=== PATIENT | male | born 1965 | race Caucasian/White ===

== ENCOUNTER 2020-08-11 20:03 | Inpatient (IN) | payer MEDICARE ==
[~2020-08-11] VITALS: Ht 185.4 cm; Wt 102.1 kg
[~2020-08-11 20:03] MED LIST: ALBUTEROL0.63 MG/3 INH; BUSPAR 10MG10 MG PO; COZAAR100 MG PO; ECOTRIN81 MG PO; GLUCOPHAGE500 MG PO; IMDUR ER TAB 6060 MG PO; LIPITOR TAB 2020 MG PO; NITROSTAT0.4 MG SL; PROTONIX40 M1 PO; TOPROL XL50 MG PO
[2020-08-11 20:38] LABS: HEMOGLOBIN 11.9 gm/dl (14.0-17.5); RED BLOOD COUNT 4.2 M/UL (4.20-5.50); WHITE BLOOD COUNT 4.9 K/UL (4.5-11.0)
[2020-08-11 20:54] LABS: BUN/CREATININE RATIO 17 (0-10)
[2020-08-12] MEDS ORDERED: PROTONIX40 MG PO (14:10)
[2020-08-12] MEDS ORDERED: FENOFIBRATE160 MG PO (14:13)
[2020-08-12] MEDS ORDERED: WELLBUTRIN XL150 MG PO (14:13)
[2020-08-12] MEDS ORDERED: FLONASE 0.05% N16 GM (14:14)
[2020-08-12] MEDS ORDERED: VENTOLIN HFA 66.7 GM INH (14:16)
[2020-08-12] MEDS ORDERED: ROPINIROLE HCL1 MG PO (14:17)
[2020-08-12] MEDS ORDERED: OZEMPIC0.25 MG/0. SQ (14:19)
[2020-08-12] MEDS ORDERED: ZOFRAN ODT 4 MG4 MG PO (14:20)
[2020-08-12] MEDS ORDERED: AMLODIPINE BESYL5 MG PO (15:38)
[2020-08-13 05:49] LABS: HEMOGLOBIN 12.4 gm/dl (14.0-17.5); RED BLOOD COUNT 4.41 M/UL (4.20-5.50); WHITE BLOOD COUNT 4.3 K/UL (4.5-11.0)
[2020-08-14 03:11] LABS: HEMOGLOBIN 12.2 gm/dl (14.0-17.5); RED BLOOD COUNT 4.29 M/UL (4.20-5.50)
--- NOTE | 2020-08-14 09:19 | NUR ---
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
--- NOTE | 2020-08-14 14:21 | NUR ---
REPORTED OFF TO HIREN BARILLAS ON PCU PT WENT TO [id number] FROM [employer] [employer] TAKED UP TO FLOOR PER ME
[2020-08-15 02:38] LABS: HEMOGLOBIN 11.6 gm/dl (14.0-17.5); RED BLOOD COUNT 4.11 M/UL (4.20-5.50); WHITE BLOOD COUNT 6.1 K/UL (4.5-11.0)
[2020-08-15] MEDS ORDERED: ATORVASTATIN CA20 MG PO (11:08)
[2020-08-15] MEDS ORDERED: CLOPIDOGREL75 MG PO (11:08)
== END 2020-08-15 12:32 | disposition home or self-care (01) | DRG 247 ==
LOC: ER1 20:03 → CDU 08-12 03:52 → M/S 08-12 03:52 → PROG CARE 08-14 14:13
PROVIDERS: Emergency Medicine; Internal Medicine; ADMIT Internal Medicine
PROC: B24BZZZ Ultrasonography of Heart with Aorta (ICD-10-PCS; 2020-08-12)
PROC: 027034Z Dilation of Coronary Artery, One Artery with Drug-eluting Intraluminal Device, Percutaneous Approach (ICD-10-PCS; principal; 2020-08-14)
PROC: 4A023N7 Measurement of Cardiac Sampling and Pressure, Left Heart, Percutaneous Approach (ICD-10-PCS; 2020-08-14)
PROC: B2111ZZ Fluoroscopy of Multiple Coronary Arteries using Low Osmolar Contrast (ICD-10-PCS; 2020-08-14)
PROC: B2151ZZ Fluoroscopy of Left Heart using Low Osmolar Contrast (ICD-10-PCS; 2020-08-14)
PROC: 4A033BC Measurement of Arterial Pressure, Coronary, Percutaneous Approach (ICD-10-PCS; 2020-08-14)
DX: I21.4 Non-ST elevation (NSTEMI) myocardial infarction (principal); N17.9 Acute kidney failure, unspecified; F11.20 Opioid dependence, uncomplicated; G89.4 Chronic pain syndrome; Z20.822 Contact with and (suspected) exposure to COVID-19; I12.9 Hypertensive chronic kidney disease with stage 1 through stage 4 chronic kidney disease, or unspecified chronic kidney disease; E11.22 Type 2 diabetes mellitus with diabetic chronic kidney disease; N18.30 Chronic kidney disease, stage 3 unspecified; K21.9 Gastro-esophageal reflux disease without esophagitis; I25.10 Atherosclerotic heart disease of native coronary artery without angina pectoris; F15.10 Other stimulant abuse, uncomplicated; E78.5 Hyperlipidemia, unspecified; J44.9 Chronic obstructive pulmonary disease, unspecified; E86.0 Dehydration; Z82.49 Family history of ischemic heart disease and other diseases of the circulatory system; Z87.891 Personal history of nicotine dependence; Z83.3 Family history of diabetes mellitus; Z88.0 Allergy status to penicillin; Z88.8 Allergy status to other drugs, medicaments and biological substances; Z79.84 Long term (current) use of oral hypoglycemic drugs; Z79.82 Long term (current) use of aspirin; Z79.899 Other long term (current) drug therapy
CPT/HCPCS: ECHO; 36415; 71045; 80053; 80061; 80307; 82550; 82553; 82962; 83036; 83690; 83935; 84300; 84484; 84550; 85025; 85347; 85379; 85610; 85652; 85730; 86140; 93005; 93306; 96374; 96375; 99152; 99153; 99285; C1725; C1760; C1874; C1887; C9113; C9600; J1644; J1650; J2250; J2270; J2405; J3010; Q9963; Q9967; U0002